=== PATIENT | female | born 1960 | race Caucasian/White ===

== ENCOUNTER 2017-12-22 08:00 | Outpatient (RCR) | payer MEDICAID, SELFPAY ==
--- NOTE | 2017-12-03 07:30 | IE_ITS ---
Date: December 03, 2017 Referring: Susan Mariscal NP M.D. Diagnosis: Bilateral wrist and hand pain P.T. Diagnosis: SUBJECTIVE: History of Present Illness: Patient reports an insidious onset of bilateral wrist pain R worse than L. Insidious onset over 1 year history of symptoms. Has some cock up splints that offer no symptom benefit. Pain Ratin/10 currently , 8/10 at is worse in the last week. States her symptoms are essentially constant, but increase with use. Pain Location: Locates pain to be dorsal aspect of the wrist radiating into the base of the thumb and thenar eminence bilaterally R worse than L. She has been prescribed Ibuprofen which she takes minimally as she does not find it makes much difference with her symptoms, but admits she hasn't been taking as prescribed 3x a day. Current Level of Function: Difficulty with laundry, dishes, mowing her lawn and sleep secondary to pain and occasional swelling. Previous Treatment: Splints fabricated 1 year ago. (-) carpal tunnel as she had an EMG approximately 1 year ago which was (-). Social: Lives her partner in a single level home. Comorbidities: High blood pressure, chronic headache/migraines, arthritis and 2 shoulder surgeries. Falls in the last year: __X__ No ____Yes - How many? ____ - (if over 2, balance SM needs to be completed) Reported hospitalizations in the last year - __X__ No ____ Yes - Dates of admission/reason: Medications: Quality of Life: ____ Excellent __X__ Good ____ Fair ____ Poor Standardized Measures: DASH score: 42% OBJECTIVE: Posture: Mildly obese female with increased thoracic kyphosis, protracted scapula and forward head posturing. Does not appear to be in any acute distress. Level iliac crest. Observation: (behavior, atrophy, skin color, etc.) Good resting attitude of the hands bilaterally. Mild swelling noted over the dorsum of the R hand near MCP joints 3-5. Gait: WNL Palpation: Mild discomfort in the anatomical snuff box on R, (-) L. Minimal pain along the ulna styloid process or lateral wrist joint line, painfree through the dorsum of the hand, mild trigger points to bilateral thenar eminence. ROM: Wrist flexion 85 L, 70 R with mild pain at end range 80 AA. Extension 65 degrees L, 50 degrees R, 60 AA on R with mild pain at end range. Supination 85 degrees L, 70 degrees R, AA to 80. Pronation WNL bilaterally. Radial deviation WNL L, 15 degrees R. Ulnar deviation WNL L, 30 degrees R, 40 AA. MCP through DIP joints digits 2-5 WNL bilaterally. Strength: Wrist flexion 4/5 R, with mild pain 4+/5 L painfree. Extension 4-/5 R with pain along the dorsal wrist joint line, 4/5 L painfree. Certified Medical Records Coder strength 35# R, 50# L on level 2 [place] dynameter. Pinch meter 12# R, 16# L with lateral shane busgirl. Neuro: Intact sensation to light touch throughout bilateral UE's. Treatment: IE: [id number] Patient Education: In AROM for wrist flexion/extension, supination, radial and ulnar deviation. patient also issued an in clinic paraffin bath for use at home for a couple weeks. Therapeutic procedures ([id number]). Direct treatment time: 60 mins Total treatment time: 60 mins ASSESSMENT: Patient is a 57-year-old R hand dominant female, referred for PT services with the diagnosis of bilateral wrist pain. This is a chronic issue. She has been having problems with this for the last year (+) duration. Does present with significant tendon issue with regards to any repetitive over use. Certainly has some impairments with motor function, joint mobility, muscle performance and ROM. Impairments are contributing to the following functional limitations: Difficulty with laundry, dishes, mowing her lawn and sleep secondary to pain and occasional swelling. Patient is assessed as: __X__ Low 58366 ____ Moderate 78880 ____ High 14085 complexity, based on the following: History: (list): X See comorbidities and social history. Examination: (list): x See above for functional limitations and impairments. Presentation: x Stable . Evolving Unstable Decision-Making: X Low complexity Moderate complexity High complexity % Disability based on DASH __X__ Patient requires skilled PT intervention to remediate the above functional limitations to return to: __X__ Return to full functional mobility _or necessity of continued Physical Therapy intervention to attend to functional deficits which have not been fully remediated as they approach their Medicare cap. STG: __6__ weeks. 1: Independent in HEP. 2: Improve R wrist flexion to 85 degrees, extension 65 degrees actively. 3: Decrease pain by 50%. 4: Patient independent in HEP. LTG: __12__ weeks. 1: Return to full, pain-free, functional mobility with use of UEs PLAN: Patient to be seen 2 x per week, for 12 weeks, adjusting frequency of visits per patient symptoms and response to treatment. Treatment to include: Manual therapy - 98789x-: Radial carpal, joint mobilizations, dorsal, volar glides, A/AAROM into flexion/extension, MCP/PIP and DIP AAROM into fist positions,mobilization into supination/pronation as well as Therapeutic exercise - [id number] wrist stabilization strengthening. Will utilize KT tape, I strip on the dorsum of the hand for anchor with wrist flexed at end range and 25% up dorsum of the forearm followed by 2- 1/2 strips KT tape at 80% tension around the wrist. This is performed bilaterally. Will also consider use of paraffin pre mobilization. Patient is in agreement with this plan. Thank you for this referral. Please do not hesitate to contact me with any questions or concerns regarding this patient's plan of care.
--- NOTE | 2017-12-07 13:00 | PTTR_ITS ---
DATE: December 07, 2017 SUBJECTIVE: Romelia notes that she is anxious to see if the new brace will help her overall irritation into the right thumb. She has had cock-up wrist splints in the past that did not seem to help her symptoms. OBJECTIVE: Orthotic Mge/Trn - (06900 x1: Fabricated long thumb spica wrist splint to the right hand via request of Aruna's primary PT Stan Gutierrez. Utilized thermoplastic splint material Instructed in proper wear and caring of the splint. Will adjust if needed. Will consult with primary PT at next session. Direct treatment time: 20 minutes Total treatment time: 20 minutes
--- NOTE | 2017-12-15 07:27 | NT_ITS ---
Aruna cancelled today's appointment. 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
--- NOTE | 2017-12-17 09:30 | PTTR_ITS ---
DATE: 12/17/17 SUBJECTIVE: Aruna states that her wrist splint is going very well on the R. She asked if she would benefit from one on the L. We discuss less aggressive short thumb spica as oppose to long thumb spica for the wrist and thumb. Reports she has been holding up well with use of the splints and using it moreso during rest purposes when her wrist is sore. Manual therapy: ([id number]). Wrist mobilization, dorsal, volar glides grade 3 bilateral wrists as well as hold/relax mobilization into wrist flexion/ extension as well as CMC joint distraction and first digit IP joint nance and dorsal glides grade 3. She then performed Therapeutic procedures (42753w5). Instruction in advanced home program incorporating resisted wrist flexion and extension with 1# weight grasping techniques with blue theracube. Also educated in application of KT tape for wrist pain, incorporating I strip on the dorsal aspect of the palm, running up the forearm, 0 stretch, but wrist is flexed at 90. This is followed by application of 1/2 I strips with 80% tension circumferentially around the wrist , dorsal and volar sides. We did review application of this and she was given some strips to work on this with her partner at home as needed for pain. Direct treatment time: 45 mins Total treatment time: 45 mins P: Follow up with patient one time next week for re-check, upgrade of HEP and fabrication of short thumb spica on the L thumb. MM/dl
--- NOTE | 2017-12-22 07:44 | PTTR_ITS ---
DATE: 12/22/17 OBJECTIVE: Today I fabricated a short thumb spica splint for Aruna's left wrist, per supervising Adama, Stan Gutierrez. This fit well. Proper break in, wear and care instructions were gone over the her, and she will contact either Stan or me if she requires splint modifications. Direct treatment time: 8:30 til 9:00 A.M. KINGS/gabrielle
--- NOTE | 2017-12-22 15:05 | PTTR_ITS ---
DATE: 12/22/17 SUBJECTIVE: Aruna states her brace is holding up pretty well. She hasn't had to tape herself independently, but is familiar with the website as she did look it up after our last conversation. Is complaining of some left base of the thumb pain as well today. We did discuss fabricating a short thumb spica for her today. She is currently using a long thumb spica on the right. Her left is less symptomatic, and I didn't want to block as much wrist motion. She agrees to this. OBJECTIVE: Manual therapy: ([id number]). Wrist mobs dorsally and volarly of the radial carpal joints bilaterally with manual distractions. Also, performed inter carpal mobs bilaterally and some IP and MP joint mobs dorsally and palmarly of digit #1 left and right. Did review her HEP of forearm flexibility and form raiser strengthening along with her 1# wrist flexion and extension strengthening. Did apply KT tape for wrist pain on the right. She then rec'd fabrication of a short thumb spica by [employer] at no charge. Direct treatment time: 30 minutes Plan: Recheck in a couple of weeks. At that point, will discuss D/c, which she seems to be anticipating, as she has pretty good devices to manage her symptoms (braces) and is compliant with her HEP. MM/gc
== END 2017-12-31 23:59 | disposition home or self-care (01) ==
LOC: PT 08:00
PROVIDERS: PCP Nurse Practitioner Family; Referring Provider Nurse Practitioner Family; Visit Provider Nurse Practitioner Family
DX: M25.531 Pain in right wrist (principal); M25.532 Pain in left wrist
CPT/HCPCS: 97110; 97140; 97161; 97760

== ENCOUNTER 2018-03-23 00:52 | Outpatient (CLI) | payer MEDICAID, SELFPAY ==
--- NOTE | 2018-03-23 10:11 | DI.RAD_ITS ---
SYMPTOMS/DIAGNOSIS: CHRONIC BILATERAL WRIST PAIN, M25.531, M25.532, G89.29- OTHER CHRONIC PAIN RIGHT WRIST: Four views were obtained. There is an ulnar-minus variance and there appears to be degenerative change at the radioulnar joint. Carpal alignment otherwise appears within normal limits. No other significant bony abnormality seen. LEFT WRIST: Three views were obtained. There is an ulnar-minus variance with minimal degenerative change at the radioulnar joint. Carpal alignment is otherwise unremarkable and no other bony or soft tissue abnormality is seen.
== END 2018-03-23 01:12 ==
PROVIDERS: PCP Nurse Practitioner Family; Visit Provider Nurse Practitioner Family
DX: M25.531 Pain in right wrist (principal); M25.532 Pain in left wrist; G89.29 Other chronic pain
CPT/HCPCS: 73110

== ENCOUNTER 2018-04-05 11:40 | Outpatient (CLI) | payer MEDICAID, SELFPAY ==
[2018-04-05 12:43] LABS: ESR 30 MM/HR (0-30)
[2018-04-06 11:00] LABS: Cyclic Citrullinated Peptide <2.5 U/mL (<5.0); Rheumatoid Factor <8 IU/mL (<12.5)
== END 2018-04-05 12:00 ==
PROVIDERS: PCP Nurse Practitioner Family; Visit Provider Orthopaedic Surgery
DX: M25.531 Pain in right wrist (principal); M25.532 Pain in left wrist
CPT/HCPCS: 36415; 85652; 86200; 86431

== ENCOUNTER 2018-08-12 06:18 | Day surgery (SDC) | payer MEDICAID, SELFPAY ==
[2018-08-12 06:27] VITALS: BP 159/67; PULSE 92; RESP 16; TEMP 36.7; O2SAT 98
[2018-08-12] MEDS: Lidocaine 2% Multi-Dose 50 ML VIAL (07:40)
--- NOTE | 2018-08-12 08:14 | PDOC.DSDIS_ITS ---
Discharge Plan Disposition Patient Disposition: HOME Condition: Improving Discharge Details Attending Provider: Yoshi Berger Primary Care Provider: Susan Mariscal Home Meds and New Rx's Prescriptions: New hydrocodone-acetaminophen 5-325 mg Tablet 1 - 2 tab PO Q4H PRN PRN (Reason: Pain) Qty: 18 RF: 0 No Action loratadine 10 mg tablet 10 mg PO DAILY PRN (Reason: allergy symptoms) Qty: 90 RF: 4 losartan-hydrochlorothiazide 1 EACH tablet 1 tab-cap PO DAILY Qty: 90 RF: 4 fluticasone propionate 16 GM spray,suspension 2 spry NS DAILY Qty: 1 RF: 2 ibuprofen 800 mg tablet 800 mg PO TID PRN (Reason: pain) Qty: 90 RF: 1 Discharge Instructions Additional Instructions: KEEP YOUR RIGHT HAND ELEVATED ABOVE HEART LEVEL MUCH POSSIBLE FOR THE NEXT 48-72 HOURS. EXERCISE YOUR FINGERS AND THUMB COMFORT ALLOWS. YOU MAY LOOSEN THE WRIST SPLINT AND/OR THE UNDERLYING CESAR BANDAGE IF THEY FEEL TOO TIGHT. EXPECT SOME BLOODY DRAINAGE ON THE UNDERLYING GAUZE BANDAGES. FOR SHOWERING TOMORROW, USE A PLASTIC BAG WITH A RUBBER BAND ABOUT THE WRIST TO KEEP THE BANDAGES DRY. ON 08/14/18, YOU MAY REMOVE ALL OF YOUR BANDAGES AND GET YOUR WOUND WET IN THE SHOWER WITH SOAP AND WATER. GENTLY PAT THE STITCHES DRY AND COVER THEM WITH GAUZE OR EXTRA-LARGE BANDAIDS. RESUME NORMAL USE TOLERATED. YOU ONLY NEED TO USE THE WRIST SPLINT IF YOU ARE HAVING DISCOMFORT. OTHERWISE TRY TO RESUME NORMAL USE OF YOUR HAND. TAKE YOUR REGULAR MEDICATIONS BEFORE. TAKE TYLENOL, ADVIL, OR ALEVE FOR MILDER PAIN. TYLENOL MAY BE TAKEN AT THE SAME TIME ALEVE, OR AT THE SAME TIME ADVIL THEY ARE METABOLIZED DIFFERENTLY AND ARE NOT CROSS TOXIC. TAKE NORCO (HYDROCODONE 5/325MG) 1-2 EVER 4-6 HOURS FOR MORE SERIOUS PAIN. [facility] [id number] LIMIT THE AMOUNT OF NORCO THAT CAN BE PRESCRIBED TO [address]TS[address] FOLLOW-UP WITH DR. BERGER IN 1` WEEK FOR STITCH REMOVAL. Stand Alone Forms: Kwame Martinez (KARL) Equipment/Supplies: Brace Activity:: Elevate Remove Dressings/Wound Care:: 48 hours Shower/Bathe:: 48 hours Diet:: As Tolerated Discharge Orders Discharge Orders: Discharge Order (Routine); Ordered 08/12/18 Ordered By: Yoshi Berger DS: Diagnosis Discharge Diagnosis (1) Carpal tunnel syndrome on both sides: Status: Chronic
--- NOTE | 2018-08-12 10:58 | ROE_ITS ---
DATE OF PROCEDURE: August 12, 2018 PREOPERATIVE DIAGNOSIS: Chronic carpal tunnel syndrome right upper extremity, with chronic wrist and hand pain. POSTOPERATIVE DIAGNOSIS: Same. PROCEDURE: Right open carpal tunnel release. SURGEON: Yoshi Rdz M.D. ELECTRICIAN SHOP: Nurse. ANESTHETIC: 2% Lidocaine plain. PREP: ChloraPrep. INDICATIONS: This patient has had chronic bilateral upper extremity pain for a prolonged period of t marisa. First when she presented, she had atypical symptoms of carpal tunnel syndrome. I had her under go EMG and nerve conduction studies, which confirmed carpal tunnel syndrome in both upper extremities , especially on the right side. I recommended carpal tunnel release. She had no thenar atrophy. Sh e's had some atypical symptoms, but mainly chronic pain, and this was associated with some numbness. I reviewed with the patient in the office a couple of weeks ago and again today, the planned operati ve procedure and the rationale for its use. She understood and wished to proceed. I marked her righ t upper extremity with a skin marker in the Day Surgery holding area. PROCEDURE DESCRIPTION: The patient was taken to the operative suite and her right upper extremity wa s prepped with ChloraPrep. Sterile drapes were applied. A time-out was instituted. A universal carpal tunnel incision was then made after prior anesthesia being administered with 2% Li docaine in the proposed incision site along the fourth, or ring finger, ray. After ensuring adequate anesthesia, the incision was made with a 15 scalpel blade. The skin and subcutaneous tissues were i ncised and hemostasis was controlled by direct pressure. Under direct vision using loupe magnificati on, the incision was carried through the subcutaneous tissues to the palmar fascia. Heiss retractors were inserted. A combination of sharp and blunt dissection was then utilized to expose the transver se carpal ligament. It was incised under direct vision, and a complete release was done from the dis binta extent near the arterial arcade to approximately over the proximal origin of the antebrachial fas aline. The median nerve was engorged with a prominent vein over the median nerve, also engorged. Ther e was moderate tenosynovitis. There was no evidence of any ganglion cysts, loose bodies or foreign b odies. The wound was then irrigated. The skin was then closed with sutures of #5-0 Ethilon, alterna baltazarg simple sutures with qond-wtd-zjh-near retention-type sutures. Sterile bandages were applied con sisting of Xeroform gauze, 4x4's, a 3-inch conforming gauze bandage, followed by a 3-inch Abhay wrap an d a commercial wrist immobilizer. The patient was taken to the outpatient recovery room in satisfact ory condition, tolerating the procedure well.
== END 2018-08-12 08:45 | disposition home or self-care (01) ==
PROVIDERS: PCP Nurse Practitioner Family; Visit Provider Orthopaedic Surgery
PROC: (CPT 64721; principal; 2018-08-12 07:30)
DX: G56.01 Carpal tunnel syndrome, right upper limb (principal)
CPT/HCPCS: 64721; L3908

== ENCOUNTER 2018-10-21 09:16 | Day surgery (SDC) | payer MEDICAID, SELFPAY ==
[2018-10-21 09:32] VITALS: BP 162/111; PULSE 88; RESP 16; TEMP 36.4; O2SAT 96
[2018-10-21] MEDS: Lidocaine 2% Multi-Dose 50 ML VIAL (11:03)
--- NOTE | 2018-10-21 11:42 | PDOC.DSDIS_ITS ---
Discharge Plan Disposition Patient Disposition: HOME Condition: Improving Discharge Details Attending Provider: Yoshi Rdz Primary Care Provider: Susan Mariscal Home Meds and New Rx's Prescriptions: New hydrocodone-acetaminophen 5-325 mg Tablet 1 - 2 tab PO Q4H PRN PRN (Reason: Pain) Qty: 18 RF: 0 No Action loratadine 10 mg tablet 10 mg PO DAILY PRN (Reason: allergy symptoms) Qty: 90 RF: 4 losartan-hydrochlorothiazide 1 EACH tablet 1 tab-cap PO DAILY Qty: 90 RF: 4 fluticasone propionate 16 GM spray,suspension 2 spry NS DAILY Qty: 1 RF: 2 ibuprofen 800 mg tablet 800 mg PO TID PRN (Reason: pain) Qty: 90 RF: 1 sumatriptan succinate [Imitrex] 50 mg tablet 50 mg PO PRN PRN (Reason: migraine headache) RF: 0 Discharge Instructions Additional Instructions: Keep your left hand elevated above heart level as much as possible for the next 48-72 hours. Exercise your fingers and thumb as comfort allows. You may loosen your wrist splint and/or the underlying fanny bandages if they feel too tight. Expect some bloody drainage on the underlying gauze bandages. For showering tomorrow, use a plastic bag with a rubber band about the upper forearm to keep the splint and bandages dry. On 10/23/18, you may remove all of your bandages and get your incision wet in the shower with soap and water. Gently pat the stitches dry and cover them with either extra-large bandaids, or gauze, or a clean fingerless cotton glove to prevent your stitches from catching on objects. Continue to use your hand as comfort allows. You may go without the wrist splint after 10/23/18. Take your usual medications as before. Take tylenol, advil, or aleve for milder pain. Tylenol may be taken at the same time as advil, or at the same time as aleve as they are metabolized differently and are not cross toxic. Take norco (hydrocodone (5/325mg) 1-2 every 4- 6 hours for more serious pain. [facility] regulations limit the amount of norco that can be prescribed to 18 tablets. Follow-up with Dr. Rdz's office in 7-10 days for stitch removal. Equipment/Supplies: Brace Activity:: Elevate Remove Dressings/Wound Care:: 48 hours Shower/Bathe:: 48 hours Diet:: As Tolerated Discharge Orders Discharge Orders: Discharge Order (Routine); Ordered 10/21/18 Ordered By: Yoshi Rdz DS: Diagnosis Discharge Diagnosis (1) Left carpal tunnel syndrome: Status: Acute
--- NOTE | 2018-10-21 12:28 | ROE_ITS ---
DATE OF PROCEDURE: October 21, 2018 PREOPERATIVE DIAGNOSIS: Chronic left carpal tunnel syndrome. POSTOPERATIVE DIAGNOSIS: Same. PROCEDURE: Left open carpal tunnel release. SURGEON: Yoshi Rdz M.D. MACHINE WIPER: Tech ANESTHETIC: 2% Lidocaine plain. PREP: ChloraPrep. INDICATIONS: This patient has had symptoms of bilateral carpal tunnel syndrome. She underwent succe ssful surgical release on the right upper extremity. She was having more numbness and tingling of th e left upper extremity than on the right side. However, she was having more pain on the right side c ompared to the left. Because she had a good recovery from the right open carpal tunnel release she w as anxious to proceed to have the left hand corrected. I saw the patient in the Day Surgery holding area. I re-reviewed the planned operative procedure with her left hand. I noted that her right hand has healed well. Risks and benefits were discussed and she wished to proceed. Her left hand was ma rked with a surgical skin marker in the holding area. PROCEDURE: The patient was brought to the operating suite where her left upper extremity was prepped with ChloraPrep. Sterile drapes were applied. 2% Lidocaine was then used to create an anesthetic w heal along the proposed incision site. A universal carpal tunnel incision was made, based over the r ing finger ray. Care was taken to stay ulnar to the palmaris longus tendon so as to avoid damage to the palmar cutaneous branch and the median nerve. The incision was placed in a curvilinear fashion a cross the wrist flexion crease. After ensuring adequate anesthesia, the incision was made under loup e magnification. It was carried down by a combination of sharp and blunt dissection through the palm ar fat, then through the palmar fascia. Heiss retractors were inserted for good visualization. Unde r direct vision the transverse carpal ligament was incised with a #15 scalpel blade. A complete rel ease was performed to make sure there were no encumbrances on the median nerve. There was a moderate amount of tenosynovitis of the flexor tendons, but no loose bodies, foreign bodies or ganglion cysts . The distal portion of the antebrachial fascia was also released so as to prevent its compression o f the median nerve. The patient was asked to flex and extend her fingers and she could do so without any encumbrances or abnormalities. The wound was then irrigated with saline and the skin closed wit h sutures of #5-0 Ethilon placed in a ltme-wsk-zff-near retention technique. Supplemental sutures of #5-0 Ethilon in a simple fashion were placed. The wound was then dressed with Xeroform gauze follow ed by 4x4's, a 3-inch conforming gauze bandage, a 3-inch CESAR wrap and a commercial wrist immobilizer. The patient was taken to the outpatient recovery room in satisfactory condition, tolerating the pro cedure well.
== END 2018-10-21 12:07 | disposition home or self-care (01) ==
PROVIDERS: PCP Nurse Practitioner Family; Visit Provider Orthopaedic Surgery
PROC: (CPT 64721; principal; 2018-10-21 10:30)
DX: G56.02 Carpal tunnel syndrome, left upper limb (principal)
CPT/HCPCS: 64721; L3908

== ENCOUNTER 2019-03-22 07:37 | Outpatient (CLI) | payer MEDICAID, SELFPAY ==
--- NOTE | 2019-03-22 07:38 | DI.RAD_ITS ---
EXAM: XR CHEST 2V PA LATERAL INDICATION: cough,R05. COMPARISON: CHEST 2 VIEWS PA,LAT from 06/01/2014 TECHNIQUE: 2D digital imaging was performed. FINDINGS: The cardiac and mediastinal contours have a normal appearance. The lungs are well inflated and kiran ar. No infiltrate or effusion is seen. There are no visible emphysematous or fibrotic changes. Min imal degenerative changes are seen in the spine. IMPRESSION: Negative chest x-ray
== END 2019-03-22 07:57 ==
PROVIDERS: PCP Nurse Practitioner Family; Visit Provider Nurse Practitioner
DX: R05 Cough (principal)
CPT/HCPCS: 71046

== ENCOUNTER 2020-05-10 21:04 | Outpatient (REF) | payer MEDICAID, SELFPAY | END 2020-05-10 21:24 | LOC: LBN 21:04 | PROVIDERS: PCP Nurse Practitioner; Visit Provider Nurse Practitioner | DX: N39.0 Urinary tract infection, site not specified (principal) | CPT/HCPCS: 87077; 87086; 87186 ==

== ENCOUNTER 2022-07-02 03:29 | Outpatient (CLI) | payer MEDICAID, SELFPAY ==
[2022-07-02 12:29] LABS: Anion Gap 9.4 mmol/L (3-11); BUN 13 mg/dL (7-18); CO2 28.6 mmol/L (21.0-32.0); CREATININE 0.9 mg/dL (0.55-1.02); Calcium 10.1 mg/dL (8.5-10.1); Calculated LDL 113 mg/dL (<100); Chloride 104 mmol/L (98-107); Cholesterol 176 mg/dL (<200); Estimated GFR 71.83 (mL/min/1.73m2); Glucose 114 mg/dL (74-106); HDL Cholesterol 44 mg/dL (40-60); Potassium 3.5 mmol/L (3.5-5.1); Sodium 142 mmol/L (136-145); Triglyceride 99 mg/dL (<150)
[2022-07-02 12:38] LABS: Hemoglobin A1C 5.3 % (<5.7)
== END 2022-07-02 03:30 | disposition home or self-care (01) ==
LOC: LOS 03:30
PROVIDERS: PCP Nurse Practitioner Family; Visit Provider Nurse Practitioner
DX: I10 Essential (primary) hypertension (principal); R79.89 Other specified abnormal findings of blood chemistry
CPT/HCPCS: 36415; 80048; 80061; 82565; 83036; 84132

== ENCOUNTER 2024-05-16 15:36 | Outpatient (CLI) | payer MEDICAID, SELFPAY ==
--- NOTE | 2024-05-16 08:45 | DI.RAD_ITS ---
Exam(s) XR SHOULDER RT COMPLETE 2+V EXAM: XR SHOULDER RT COMPLETE 2+V CLINICAL HISTORY: RIGHT SHOULDER PAIN. TECHNIQUE: 2D digital imaging was performed of the right shoulder. Two images were obtained. Grash ey and axillary views were obtained. COMPARISON: No exams were available for comparison FINDINGS: BONES: No acute fracture is present. No bony destructive lesion is seen. JOINTS: No dislocation present. The glenohumeral joint appears well maintained. The acromioclavicula r joint is somewhat difficult to visualize due to patient positioning but there does appear to be at least mild arthrosis present. SOFT TISSUE: Normal. IMPRESSION: Mild arthrosis of the acromioclavicular joint. DATA REPOSITORY: RADIATION DOSE DELIVERED:
== END 2024-05-16 15:37 | disposition home or self-care (01) ==
LOC: DIORS 15:36
PROVIDERS: PCP Nurse Practitioner Family; Visit Provider Student in an Organized Health Care Education/Training Program
DX: M25.511 Pain in right shoulder (principal)
CPT/HCPCS: 73030

== ENCOUNTER 2024-09-01 15:58 | Outpatient (REF) | payer MEDICAID, SELFPAY ==
[2024-09-01 21:20] LABS: Anion Gap 12.1 mmol/L (3-11); BUN 17 mg/dL (7-18); CO2 24.9 mmol/L (21.0-32.0); CREATININE 0.7 mg/dL (0.55-1.02); Calcium 10.2 mg/dL (8.5-10.1); Chloride 104 mmol/L (98-107); Estimated GFR 95.92 (mL/min/1.73m2); Glucose 96 mg/dL (74-106); Potassium 3.8 mmol/L (3.5-5.1); Sodium 141 mmol/L (136-145)
[2024-09-04 10:40] LABS: Hepatitis C Ab w Rflx HCV PCR Negative (Negative)
[2024-09-04 10:48] LABS: HIV-1/2 Ag & Ab Screen Negative (Negative)
[2024-09-04 11:00] LABS: HBs Antibody, Quant <3.1 mIU/mL (See Note); Hep B Surface Ab Negative (See Note); Hepatitis B Core Antibody Negative (Negative); Hepatitis B Surface Antigen Negative (Negative)
== END 2024-09-01 15:59 | disposition home or self-care (01) ==
LOC: LBN 15:58
PROVIDERS: PCP Nurse Practitioner Family; Visit Provider Nurse Practitioner Family
DX: I10 Essential (primary) hypertension (principal); Z11.59 Encounter for screening for other viral diseases; Z11.4 Encounter for screening for human immunodeficiency virus [HIV]
CPT/HCPCS: 80048; 86704; 86706; 86803; 87340; 87389